=== PATIENT | female | born 1970 | race Caucasian/White ===

== ENCOUNTER 2017-07-16 14:32 | Emergency (ER) | payer MEDICAID ==
[2014-03-09 14:53] VITALS: BMI 50.0
[~2017-07-16 14:32] MED LIST: ASPI81TA94 PO; ATOR40TA24 PO; DIA5 PO; DIAZ-308 PO; DOCU-202 PO; ESCI20TA8 PO; HYDR-2966 PO; HYDR-4308 PO; HYDR-4309 PO; LISD30PT PO; LISI-362 PO; METO50TA19 PO; MULT-947 PO; MUPI15CR2 TP; NITR0.4T3 SL; OMEG-11 PO; OMEP-125 PO; OMEP40CA48 PO; PANT40TA65 PO; PER PO; PROM-110 PO; SERT-181 PO; SIMV-49 PO; TRAM-420 PO; TRI05T TP
--- NOTE | 2017-07-16 14:41 | ER Report ---
History and Physical Time Seen By MD: 14:40 Hx. of Stated Complaint: PATIENT FELL ON HER LEFT WRIST YESTERDAY. SHE IS REPORTING TINGLING IN HER FINGERS ON HER LEFT HAND HPI/ROS CHIEF COMPLAINT: Left wrist pain HISTORY OF PRESENT ILLNESS: This is a 47-year-old female who presents to the emergency department for left wrist pain. Patient states that she was at work yesterday slipped off the stool landed on her left forearm and wrist to break her fall and while doing this she twisted her right knee as well. Patient states that she has had some increased pain throughout today in addition to bruising and some numbness and tingling to the left thumb and distal fingers. Patient also states that she has carpal tunnel but this feels different. Patient denies nausea, vomiting, diarrhea, aches or chills. REVIEW OF SYSTEMS: Respiratory: No cough, no dyspnea. Cardiovascular: No chest pain, no palpitations. Gastrointestinal: No vomiting, no abdominal pain. Musculoskeletal: As above. Allergies: Coded Allergies: No Known Drug Allergies (Unverified , 09/13/15) Home Meds Active Scripts Omeprazole (OMEPRAZOLE) 40 Mg Capsule.dr, 40 MG PO QDAY, #30 CAP 6 Refills Prov:AURELIA LAYNE MD 06/10/17 Lisdexamfetamine Dimesylate (VYVANSE) 30 Mg Capsule, 30 MG PO QDAY, #30 CAPSULE Prov:AURELIA LAYNE MD 06/10/17 Escitalopram Oxalate (ESCITALOPRAM OXALATE) 20 Mg Tablet, 20 MG PO QDAY, #30 TAB 5 Refills Prov:AURELIA LAYNE MD 06/10/17 Hydrochlorothiazide (HYDROCHLOROTHIAZIDE) 25 Mg Tablet, 0.5 TAB PO QDAY, #30 TAB 6 Refills Prov:AURELIA LAYNE MD 06/10/17 Metoprolol Succinate (METOPROLOL SUCCINATE) 50 Mg Tab.er.24h, 1 TAB PO QDAY, # 30 TAB 6 Refills Prov:AURELIA LAYNE MD 06/10/17 Triamcinolone Acet 0.5% (TRIAMCINOLONE ACETONIDE 0.5%) 15 Gm Cr, 15 GM TP BID, # 15 G 1 Refill Prov:AURELIA LAYNE MD 06/10/17 Aspirin (ASPIRIN) 81 Mg Tab.chew, 81 MG PO QDAY, #90 TAB.CHEW 3 Refills Prov:AURELIA LAYNE MD 07/29/16 Reported Medications Multivit With Calcium,Iron,Min (WOMEN'S DAILY FORMULA) 1 Each Tablet, 1 EACH PO QDAY 02/20/14 Past Medical/Surgical History Patient has a past medical and surgical history of pulmonary hypertension, ankle problems, wears glasses, morbidly obese, appendectomy, mole removal. Reviewed Nurses Notes: Yes Hx Smoking: No Smoking Status: Never Smoker Exposure to Second Hand Smoke?: No Hx Substance Use Disorder: No Hx Alcohol Use: No Constitutional Vital Sign - Last 24 Hours 07/16/17 07/16/17 14:36 16:27 Temp 98.8 Pulse 92 85 Resp 20 18 B/P (MAP) 136/98 114/80 (91) Pulse Ox 93 92 O2 Delivery Room Air Room Air Physical Exam General Appearance: The patient is alert, has no immediate need for airway protection and no current signs of toxicity. Eyes: Pupils equal and round no injection. Respiratory: Chest is non tender, lungs are clear to auscultation. Cardiac: regular rate and rhythm. Gastrointestinal: Abdomen is soft and non tender, no masses, bowel sounds normal. Musculoskeletal: Neck: Neck is supple and non tender. Extremities bruising to the palm of the left hand, bruising to the palmar side of the left wrist.Examination of the Left hand reveals no acute deformity. The patient is able to give a thumbs up sign, is able to make an okay sign, and is able to AB duct the fingers. Sensation is intact over the dorsal 1st web space, the volar aspect of the 2nd finger, and the volar aspect of the 5th finger. Capillary refill is brisk. Left snuff box tenderness. Navicular and lunate pain. Skin: No rashes or lesions. DIFFERENTIAL DIAGNOSIS: After history and physical exam differential diagnosis was considered for navicular fracture, lunate fracture, distal radial fracture, contusion. Medical Decision Making EKG/Imaging Imaging PATIENT NAME: Mahsa Pearson : 1970 MR: [id number] V: [id number] EXAM DATE: ORDERING PHYSICIAN: YOHANA CATES TECHNOLOGIST: [place] [facility] [place] Patient: Mahsa Pearson : 1970 Visit/Account:[id number] Date of Sevice: 07/16/2017 EXAMINATION: Right knee radiographs 4 views HISTORY: Fall. Knee pain. COMPARISON: None. FINDINGS: AP, sunrise, lateral and oblique views of the right knee are obtained. Bones: No acute fracture. Joint spaces: Mild joint space narrowing and marginal osteophytes of the medial and lateral compartments and patellofemoral compartment. Hardware: None. Alignment: Normal. Soft tissues: Negative. IMPRESSION: No acute right knee fracture. 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 Report Dictated By: Jese Fuller MD at 07/16/2017 3:26 PM Report E-Signed By: Jese Fuller MD at 07/16/2017 3:29 PM WSN:[id number] PATIENT NAME: Mahsa Pearson : 1970 MR: [id number] V: [id number] EXAM DATE: ORDERING PHYSICIAN: YOHANA CATES TECHNOLOGIST: [place] [facility] [place] Patient: Mahsa Pearson : 1970 Visit/Account:[id number] Date of Sevice: 07/16/2017 EXAMINATION: Left wrist radiographs 3 views HISTORY: Fall. Wrist pain. COMPARISON: None. FINDINGS: PA, lateral and oblique views of the left wrist are obtained. Bones: Negative. Joint spaces: Negative. Hardware: None. Alignment: Normal. Soft tissues: Negative. IMPRESSION: No evidence of acute left wrist fracture. Report Dictated By: Jese Fuller MD at 07/16/2017 3:25 PM Report E-Signed By: Jese Fuller MD at 07/16/2017 3:26 PM WSN:[id number] ED Course/Re-evaluation ED Course The patient was admitted to room. A history of physical or pain. Differential diagnoses were considered. A left wrist and right knee x-ray were obtained, also which were negative for any acute abnormalities. I did review these results with the patient. Patient was placed in a wrist splint for comfort. Patient was also encouraged to follow-up with her primary care provider as needed and also follow-up with [facility] if she has continued left wrist pain and knee pain after 7 days. She was encouraged to return to emergency department for worsening symptoms. Patient was also given a gram of Tylenol in the emergency department. Patient was encouraged to take ibuprofen or Tylenol as needed for pain and discomfort. Patient had no other questions or concerns and was discharged home. Decision to Disposition Date: Jul 16, 2017 Decision to Disposition Time: 16:08 Depart Departure Latest Vital Signs Vital Signs Date Time Temp Pulse Resp B/P (MAP) Pulse Ox O2 Delivery O2 Flow Rate FiO2 07/16/17 16:27 85 18 114/80 (91) 92 Room Air 07/16/17 14:36 98.8 Impression: Primary Impression: Contusion of left wrist Condition: Improved Disposition: HOME OR SELF-CARE Referrals: AURELIA LAYNE MD (PCP) Patient Instructions: Contusion in Adults (ED) Additional Instructions: Drink plenty of fluids. Get plenty of rest. Wear the splint for comfort. If no improvement in the pain, swelling and tingling in 7-14 days please follow- up with [facility]. Follow-up with your primary care provider for any other nature may have. You can take 600-800 mg ibuprofen every 6-8 hours as needed for pain. You can take 1000 mg Tylenol as needed for pain up to 3 times a day. If you have worsening symptoms or any other concerns he may return to the emergency department. Problem Qualifiers Primary Impression: Contusion of left wrist Encounter type: initial encounter Qualified Codes: S60.212A - Contusion of left wrist, initial encounter YOHANA CATES ENVIRONMENTAL HEALTH NURSE-BC Jul 16, 2017 14:41
[2017-07-16] MEDS ORDERED: ACETAMINOPHEN 500 MG TAB PO ONE (14:55)
--- NOTE | 2017-07-16 15:31 | RADIOLOGY IMAGING REPORT ---
FACILITY: [facility] PATIENT NAME: Mahsa Pearson : 1970 MR: [id number] V: [id number] EXAM DATE: ORDERING PHYSICIAN: YOHANA CATES TECHNOLOGIST: [place] [facility] [place]sa [place] : 1970 Visit/Account:[id number] Date of Sevice: 07/16/2017 EXAMINATION: Left wrist radiographs 3 views HISTORY: Fall. Wrist pain. COMPARISON: None. FINDINGS: PA, lateral and oblique views of the left wrist are obtained. Bones: Negative. Joint spaces: Negative. Hardware: None. Alignment: Normal. Soft tissues: Negative. IMPRESSION: No evidence of acute left wrist fracture. Report Dictated By: Jese Fuller MD at 07/16/2017 3:25 PM Report E-Signed By: Jese Fuller MD at 07/16/2017 3:26 PM WSN:[id number]
--- NOTE | 2017-07-16 15:34 | RADIOLOGY IMAGING REPORT ---
[place] [facility] [place] NAME: Mahsa Pearson : 1970 MR: [id number] V: [id number] EXAM DATE: ORDERING PHYSICIAN: YOHANA CATES TECHNOLOGIST: Location: [facility] [place] Patient: Mahsa Pearson : 1970 Visit/Account:[id number] Date of Sevice: 07/16/2017 EXAMINATION: Right knee radiographs 4 views HISTORY: Fall. Knee pain. COMPARISON: None. FINDINGS: AP, sunrise, lateral and oblique views of the right knee are obtained. Bones: No acute fracture. Joint spaces: Mild joint space narrowing and marginal osteophytes of the medial and lateral compartm ents and patellofemoral compartment. Hardware: None. Alignment: Normal. Soft tissues: Negative. IMPRESSION: No acute right knee fracture. 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 Report Dictated By: Jese Fuller MD at 07/16/2017 3:26 PM Report E-Signed By: Jese Fuller MD at 07/16/2017 3:29 PM WSN:[id number]
[2017-07-16 16:27] VITALS: BP 114/80
== END 2017-07-16 16:22 | disposition home or self-care (01) ==
LOC: ER 14:33
DX: S60.212A Contusion of left wrist, initial encounter (principal)
CPT/HCPCS: 73110; 73564; 99282; L3908

== ENCOUNTER → 2017-08-04 | Outpatient (CLI) | payer MEDICAID ==
[2014-03-09 14:53] VITALS: BMI 50.0
[~2017-08-04] MED LIST changes: +ALBU2.5V36 INH; +GUAI120L3 PO
--- NOTE | 2017-08-04 12:36 | RADIOLOGY IMAGING REPORT ---
FACILITY: [facility] - [place] PATIENT NAME: Mahsa Pearson : 1970 MR: [id number] V: [id number] EXAM DATE: ORDERING PHYSICIAN: EDGARD NGUYEN TECHNOLOGIST: Location: [facility] Patient: Mahsa Pearson : 1970 Visit/Account:[id number] Date of Sevice: 08/04/2017 Exam type: CHEST PA AND LAT History: Influenza be, cough fever shortness of breath for four days Comparison: September 13, 2015. Findings: The lungs are free of acute effusions, infiltrates or edema. The cardiac silhouette is normal in siz e. The trachea is midline.. There are mild spondylotic changes of the thoracic spine IMPRESSION: 1. No acute cardiopulmonary process is seen Report Dictated By: Susan Allred MD at 08/04/2017 12:30 PM Report E-Signed By: Susan Allred MD at 08/04/2017 12:32 PM WSN:[id number]
== END ==
LOC: RAD 10:44
PROVIDERS: ATTEND Nurse Practitioner Primary Care
DX: R05 Cough (principal)
CPT/HCPCS: 71046

== ENCOUNTER 2017-11-25 19:27 | Emergency (ER) | payer MEDICAID ==
[2014-03-09 14:53] VITALS: Wt 149.7 kg
[~2017-11-25 19:27] MED LIST changes: +AZIT-1 PO; +FLU150 PO; +PRED20TA6 PO
--- NOTE | 2017-11-25 19:41 | ER Report ---
History and Physical Time Seen By MD: 19:40 Hx. of Stated Complaint: PATIENT STATES THAT TODAY SHE HAS HAD HIGH BLOOD PRESSURE ALL DAY; PATIENT STATES THAT SHE HAS HAD CHEST PAIN FOR ABOUT A AN HOUR; PATIENT STATES THAT SHE IS ALSO HAS HEAD ACHES; "RED FACE"; AND HAS BEEN SWEATING HPI/ROS CHIEF COMPLAINT: chest pain, elevated blood pressure HISTORY OF PRESENT ILLNESS: This is a 47 year old female. She has been having some pains in her chest, just to the left of sternum and on the side of the chest by the left breast. Sharp pains, comes and goes. Having a headache and some tightness in neck. Blood pressure running high today. Takes Metoprolol succinate 50mg in the evenings. Is supposed to take HCTZ 12.5mg, but dies not have money to get this medicine. Also supposed to take Omeprazole. Having occasional nausea. No shortness of breath. No fevers or chills. Allergies: Coded Allergies: No Known Drug Allergies (Unverified , 09/13/15) Home Meds Active Scripts Omeprazole (OMEPRAZOLE) 40 Mg Capsule.dr, 40 MG PO QDAY, #30 CAP 0 Refills Prov:EDGARD NGUYEN DNP, FNP-BC 09/06/17 Escitalopram Oxalate (ESCITALOPRAM OXALATE) 20 Mg Tablet, 20 MG PO QDAY, #30 TAB 0 Refills Prov:EDGARD NGUYEN DNP, FNP-BC 09/06/17 Metoprolol Succinate (METOPROLOL SUCCINATE) 50 Mg Tab.er.24h, 1 TAB PO QDAY, # 30 TAB 0 Refills Prov:EDGARD NGUYEN DNP, FNP-BC 09/06/17 Lisdexamfetamine Dimesylate (VYVANSE) 30 Mg Capsule, 30 MG PO QDAY, #30 CAPSULE Prov:AURELIA LAYNE MD 06/10/17 Hydrochlorothiazide (HYDROCHLOROTHIAZIDE) 25 Mg Tablet, 0.5 TAB PO QDAY, #30 TAB 6 Refills Prov:AURELIA LAYNE MD 06/10/17 Triamcinolone Acet 0.5% (TRIAMCINOLONE ACETONIDE 0.5%) 15 Gm Cr, 15 GM TP BID, # 15 G 1 Refill Prov:AURELIA LAYNE MD 12/14/17 Aspirin (ASPIRIN) 81 Mg Tab.chew, 81 MG PO QDAY, #90 TAB.CHEW 3 Refills Prov:AURELIA LAYNE MD 07/29/16 Reported Medications Multivit With Calcium,Iron,Min (WOMEN'S DAILY FORMULA) 1 Each Tablet, 1 EACH PO QDAY 02/20/14 Discontinued Scripts Guaifenesin/Codeine Phosphate (Codeine-Guaifen 10-100 mg/5 ml) 120 Ml Liquid, 1- 2 TSP PO Q6H Y for COUGH, #120 ML 0 Refills Prov:EDGARD NGUYEN DNP [facility] 09/06/17 Fluconazole (FLUCONAZOLE) 150 Mg Tab, 1 TAB PO ONCE, #2 TAB 0 Refills Take 1 tab x1. May take 2nd dose 72h later, if needed. Prov:EDGARD NGUYEN DNP, FNPJeimy 09/06/17 Azithromycin (ZITHROMAX) 250 Mg Tablet, 0 PO QDAY, #6 TAB 0 Refills TAKE 2 TABLETS ON DAY 1 AND 1 TABLET ON DAYS 2-5 Prov:EDGARD NGUYEN DNP, FNP-BC 09/06/17 Prednisone (PREDNISONE) 20 Mg Tablet, 1 TAB PO BID for 5 Days, #10 TAB 0 Refills Prov[facility] 09/06/17 Reviewed Nurses Notes: Yes Hx Smoking: No Smoking Status: Never Smoker Exposure to Second Hand Smoke?: No Hx Substance Use Disorder: No Hx Alcohol Use: No Constitutional Vital Sign - Last 24 Hours 11/25/17 11/25/17 11/25/17 11/25/17 19:31 19:35 19:47 19:57 Temp 98.9 Pulse 103 106 Resp 19 18 B/P (MAP) 148/91 148/91 (110) 144/69 (94) Pulse Ox 93 94 O2 Delivery Room Air 11/25/17 11/25/17 11/25/17 11/25/17 20:00 20:15 20:27 20:30 Pulse 103 Resp 29 B/P (MAP) 134/81 (98) 121/79 (93) 115/65 (82) Pulse Ox 90 11/25/17 11/25/17 11/25/17 11/25/17 20:45 20:57 21:11 21:15 Pulse 102 Resp 29 B/P (MAP) 132/76 (94) 149/83 (105) 133/76 (95) Pulse Ox 91 11/25/17 11/25/17 11/25/17 11/25/17 21:30 21:45 21:57 22:00 Pulse 98 B/P (MAP) 136/73 (94) 131/86 (101) 110/72 (85) 11/25/17 11/25/17 11/25/17 11/25/17 22:15 22:27 22:30 22:45 Pulse 99 Resp 46 B/P (MAP) 128/77 (94) 130/73 (92) 126/78 (94) Pulse Ox 91 11/25/17 11/25/17 11/25/17 11/25/17 22:50 23:00 23:05 23:15 Pulse 96 97 Resp 32 43 B/P (MAP) 130/109 (116) 137/75 (95) Pulse Ox 91 91 11/25/17 11/25/17 11/25/17 11/25/17 23:20 23:30 23:35 23:39 Pulse 97 99 Resp 27 12 B/P (MAP) 137/81 (99) 133/92 (106) Pulse Ox 90 90 Physical Exam General Appearance: The patient is alert. No acute distress. Eyes: Pupils are equal, round. No pallor, injection or icterus. ENT: Mucous membranes are moist. Normal oral mucosa. Posterior oropharynx is normal. Neck: Supple and non tender. Respiratory: Lungs are clear to auscultation. Cardiovascular: Regular rate and rhythm. No murmurs, gallops or rubs. Normal capillary refill. Gastrointestinal: Abdomen is soft and non tender. Nondistended. Normal active bowel sounds. Neurological: Alert and oriented x3. No focal neurologic deficits Skin: Warm and dry. DIFFERENTIAL DIAGNOSIS: After history and physical exam, differential diagnosis was considered for elevated blood pressure and chest pain including but not limited to myocardial ischemia, pericarditis pulmonary embolus, chest wall pain , pleural inflammation and pulmonary infectious causes. Medical Decision Making Data Points Result Diagram: 11/25/17195711/25/171957 Laboratory Hematology Test 11/25/17 19:49 11/25/17 19:58 Urine Color Yellow Urine Clarity Slightly-cloudy Urine pH 6.0 pH (4.8-9.5) Urine Specific [place] 1.025 Urine Protein Negative mg/dL (NEGATIVE) Urine Glucose (UA) Negative mg/dL (NEGATIVE) Urine Ketones Trace mg/dL (NEGATIVE) Urine Blood Negative (NEGATIVE) Urine Nitrite Negative (NEGATIVE) Urine Bilirubin Negative (NEGATIVE) Urine Urobilinogen Negative mg/dL (0.2-1.9) Urine Leukocyte Esterase Negative (NEGATIVE) Urine RBC <1 /HPF (0-2/HPF) Urine WBC 1 /HPF (0-5/HPF) Urine Squamous Epithelial Cells Many /LPF (</=FEW) Urine Bacteria Few /HPF (NONE-FEW) Urine Mucus Few /HPF (NONE-FEW) Red Blood Count 4.49 M/uL (4.17-5.56) Mean Corpuscular Volume 90.0 fL (80.0-96.0) Mean Corpuscular Hemoglobin 30.9 pg (26.0-33.0) Mean Corpuscular Hemoglobin Concent 34.3 g/dL (32.0-36.0) Red Cell Distribution Width 13.8 % (11.5-14.5) Mean Platelet Volume 9.9 fL (7.2-11.1) Neutrophils (%) (Auto) 60.0 % (39.4-72.5) Lymphocytes (%) (Auto) 32.4 % (17.6-49.6) Monocytes (%) (Auto) 6.1 % (4.1-12.4) Eosinophils (%) (Auto) 1.0 % (0.4-6.7) Basophils (%) (Auto) 0.5 % (0.3-1.4) Nucleated RBC Relative Count (auto) 0.0 /100WBC Neutrophils # (Auto) 5.1 K/uL (2.0-7.4) Lymphocytes # (Auto) 2.8 K/uL (1.3-3.6) Monocytes # (Auto) 0.5 K/uL (0.3-1.0) Eosinophils # (Auto) 0.1 K/uL (0.0-0.5) Basophils # (Auto) 0.0 K/uL (0.0-0.1) Nucleated RBC Absolute Count (auto) 0.00 K/uL Prothrombin Time 13.0 seconds (12.0-14.4) Prothromb Time International Ratio 0.98 Activated Partial Thromboplast Time 23 seconds (23-35) D-Dimer Quantitative (PE/DVT) 0.32 ug/ml (0-0.50) Sodium Level 139 mmol/L (137-145) Potassium Level 3.6 mmol/L (3.5-5.0) Chloride Level 98 mmol/L (98-107) Carbon Dioxide Level 26 mmol/L (22-31) Blood Urea Nitrogen 8 mg/dl (7-18) Creatinine 0.60 mg/dl (0.52-1.04) Glomerular Filtration Rate Calc > 60.0 Random Glucose 191 mg/dl (75-110) Calcium Level 9.6 mg/dl (8.4-10.2) Total Bilirubin 1.0 mg/dl (0.2-1.3) Aspartate Amino Transf (AST/SGOT) 34 U/L (0-35) Alanine Aminotransferase (ALT/SGPT) 28 U/L (0-56) Alkaline Phosphatase 115 U/L (0-126) Troponin I < 0.012 ng/ml Total Protein 7.4 gm/dl (6.3-8.2) Albumin 3.9 g/dl (3.5-5.0) Chemistry Test 11/25/17 19:49 11/25/17 19:58 Urine Color Yellow Urine Clarity Slightly-cloudy Urine pH 6.0 pH (4.8-9.5) Urine Specific [place] 1.025 Urine Protein Negative mg/dL (NEGATIVE) Urine Glucose (UA) Negative mg/dL (NEGATIVE) Urine Ketones Trace mg/dL (NEGATIVE) Urine Blood Negative (NEGATIVE) Urine Nitrite Negative (NEGATIVE) Urine Bilirubin Negative (NEGATIVE) Urine Urobilinogen Negative mg/dL (0.2-1.9) Urine Leukocyte Esterase Negative (NEGATIVE) Urine RBC <1 /HPF (0-2/HPF) Urine WBC 1 /HPF (0-5/HPF) Urine Squamous Epithelial Cells Many /LPF (</=FEW) Urine Bacteria Few /HPF (NONE-FEW) Urine Mucus Few /HPF (NONE-FEW) White Blood Count 8.5 k/uL (4.5-11.0) Red Blood Count 4.49 M/uL (4.17-5.56) Hemoglobin 13.9 g/dL (12.0-16.0) Hematocrit 40.4 % (34.0-47.0) Mean Corpuscular Volume 90.0 fL (80.0-96.0) Mean Corpuscular Hemoglobin 30.9 pg (26.0-33.0) Mean Corpuscular Hemoglobin Concent 34.3 g/dL (32.0-36.0) Red Cell Distribution Width 13.8 % (11.5-14.5) Platelet Count 275 K/uL (150-450) Mean Platelet Volume 9.9 fL (7.2-11.1) Neutrophils (%) (Auto) 60.0 % (39.4-72.5) Lymphocytes (%) (Auto) 32.4 % (17.6-49.6) Monocytes (%) (Auto) 6.1 % (4.1-12.4) Eosinophils (%) (Auto) 1.0 % (0.4-6.7) Basophils (%) (Auto) 0.5 % (0.3-1.4) Nucleated RBC Relative Count (auto) 0.0 /100WBC Neutrophils # (Auto) 5.1 K/uL (2.0-7.4) Lymphocytes # (Auto) 2.8 K/uL (1.3-3.6) Monocytes # (Auto) 0.5 K/uL (0.3-1.0) Eosinophils # (Auto) 0.1 K/uL (0.0-0.5) Basophils # (Auto) 0.0 K/uL (0.0-0.1) Nucleated RBC Absolute Count (auto) 0.00 K/uL Prothrombin Time 13.0 seconds (12.0-14.4) Prothromb Time International Ratio 0.98 Activated Partial Thromboplast Time 23 seconds (23-35) D-Dimer Quantitative (PE/DVT) 0.32 ug/ml (0-0.50) Glomerular Filtration Rate Calc > 60.0 Calcium Level 9.6 mg/dl (8.4-10.2) Total Bilirubin 1.0 mg/dl (0.2-1.3) Aspartate Amino Transf (AST/SGOT) 34 U/L (0-35) Alanine Aminotransferase (ALT/SGPT) 28 U/L (0-56) Alkaline Phosphatase 115 U/L (0-126) Troponin I < 0.012 ng/ml Total Protein 7.4 gm/dl (6.3-8.2) Albumin 3.9 g/dl (3.5-5.0) Coagulation Test 11/25/17 19:58 Prothrombin Time 13.0 seconds Prothromb Time International Ratio 0.98 Activated Partial Thromboplast Time 23 seconds D-Dimer Quantitative (PE/DVT) 0.32 ug/ml Urinalysis Test 11/25/17 19:49 Urine Color Yellow Urine Clarity Slightly-cloudy Urine pH 6.0 pH (4.8-9.5) Urine Specific [place] 1.025 Urine Protein Negative mg/dL (NEGATIVE) Urine Glucose (UA) Negative mg/dL (NEGATIVE) Urine Ketones Trace mg/dL (NEGATIVE) Urine Blood Negative (NEGATIVE) Urine Nitrite Negative (NEGATIVE) Urine Bilirubin Negative (NEGATIVE) Urine Urobilinogen Negative mg/dL (0.2-1.9) Urine Leukocyte Esterase Negative (NEGATIVE) Urine RBC <1 /HPF (0-2/HPF) Urine WBC 1 /HPF (0-5/HPF) Urine Squamous Epithelial Cells Many /LPF (</=FEW) Urine Bacteria Few /HPF (NONE-FEW) Urine Mucus Few /HPF (NONE-FEW) EKG/Imaging EKG Interpretation 12 lead EKG: Rhythm: Sinus tachycardia, rate 103 [place]: normal QRS: normal ST segments: normal Imaging Examination: CHEST PA AND LAT Comparison: 08/04/2017 History: Chest pain. Findings: No consolidation, nodule, or peribronchial inflammation. No pneumothorax, edema, or effusion. Cardiac and hilar contour size is normal. Osseous structures are intact. IMPRESSION: No evidence of acute cardiopulmonary disease. Report Dictated By: Edd Whitaker MD at 11/25/2017 9:27 PM ED Course/Re-evaluation Clinical Indication for ER IV: IV Access ED Course Gave the patient hydrochlorothiazide 12.5 mg had her metoprolol dose. Blood pressure came down well. Laboratory studies, EKG, and x-rays are negative. Reviewed with the patient that this is noncardiac pain. Could be pleurisy, could be related to reflux. Recommended restarting omeprazole and her hydrochlorothiazide. Decision to Disposition Date: November 25, 2017 Decision to Disposition Time: 22:52 Depart Departure Latest Vital Signs Vital Signs Date Time Temp Pulse Resp B/P (MAP) Pulse Ox O2 Delivery O2 Flow Rate FiO2 11/25/17 23:39 133/92 (106) 11/25/17 23:35 99 12 90 11/25/17 19:31 98.9 Room Air Impression: Primary Impression: Hypertension Additional Impressions: Chest pain GERD (gastroesophageal reflux disease) Condition: Improved Disposition: HOME OR SELF-CARE Referrals: AURELIA LAYNE MD (PCP) Patient Instructions: Chest Pain (ED), Hypertension (ED) Additional Instructions: We think that your chest pain is due to inflammation or possibly due to your reflux We did not find any dangerous problems on exam today. Please rest and increase fluids. Restart your Omeprazole. Restart your hydrochlorathiazide. No change to Metoprolol. Problem Qualifiers Primary Impression: Hypertension Hypertension type: unspecified Qualified Codes: I10 - Essential (primary) hypertension Additional Impressions: Chest pain Chest pain type: unspecified Qualified Codes: R07.9 - Chest pain, unspecified GERD (gastroesophageal reflux disease) Esophagitis presence: with esophagitis Qualified Codes: K21.0 - Gastro- esophageal reflux disease with esophagitis JACQUE GONZALEZ MD November 25, 2017 19:41
[2017-11-25] MEDS ORDERED: HYDROCHLOROTHIAZIDE 25 MG TAB PO ONE (20:05)
[2017-11-25] MEDS ORDERED: NS(*) 0.9% 1000 ML BAG 1,000 ML IV ONE (20:05)
[2017-11-25] MEDS ORDERED: METOPROLOL SUCC XL 50 MG TABCR 50 MG TAB.ER.24H PO ONE (20:05)
[2017-11-25] MEDS ORDERED: ASPIRIN 81 MG CHEW PO ONE (20:05)
[2017-11-25 20:17] LABS: PLATELET COUNT, AUTOMATED 275 K/uL (150-450)
--- NOTE | 2017-11-25 20:25 | EKG ---
FACILITY: [facility] - [place] PATIENT NAME: TWAN NGUYEN : [id number] MR: [id number] V: [id number] EXAM DATE: ORDERING PHYSICIAN: JACQUE GONZALEZ TECHNOLOGIST: TYLER Test Reason : CP Blood Pressure : / mmHG Vent. Rate : 103 BPM Atrial Rate : 103 BPM P-R Int : 130 ms QRS Dur : 090 ms QT Int : 342 ms P-R-T Axes : 049 017 011 degrees QTc Int : 448 ms Sinus tachycardia Possible Left atrial enlargement No ST-T abnormalities Unchanged from previous Confirmed by SANDRO CENTENO ([id number]) on 11/25/2017 10:49:38 PM Referred By: CARLOS Confirmed By:SANDRO CENTENO
[2017-11-25 20:27] LABS: INR 0.98
--- NOTE | 2017-11-25 21:35 | RADIOLOGY IMAGING REPORT ---
FACILITY: [facility] - [place] PATIENT NAME: Mahsa Pearson : 1970 MR: [id number] V: [id number] EXAM DATE: ORDERING PHYSICIAN: JACQUE GONZALEZ TECHNOLOGIST: Location: [facility] [place] Patient: Mahsa Pearson : 1970 Visit/Account:[id number] Date of Sevice: 11/25/2017 Examination: CHEST PA AND LAT Comparison: 08/04/2017 History: Chest pain. Findings: No consolidation, nodule, or peribronchial inflammation. No pneumothorax, edema, or effusio n. Cardiac and hilar contour size is normal. Osseous structures are intact. IMPRESSION: No evidence of acute cardiopulmonary disease. Report Dictated By: Edd Whitaker MD at 11/25/2017 9:27 PM Report E-Signed By: Edd Whitaker MD at 11/25/2017 9:30 PM WSN:[id number]
[2017-11-25 23:39] VITALS: BP 133/92
== END 2017-11-25 23:56 | disposition home or self-care (01) ==
LOC: ER 19:38
DX: I10 Essential (primary) hypertension (principal); R07.89 Other chest pain; K21.0 Gastro-esophageal reflux disease with esophagitis
CPT/HCPCS: 71046; 81001; 84484; 85025; 85379; 85610; 85730; 93005; 96360; 99284; J7030; 82040; 82247; 82310; 82374; 82435; 82565; 82947; 84075; 84132; 84155; 84295; 84450; 84460; 84520

== ENCOUNTER → 2018-04-08 | Outpatient (CLI) | payer MEDICAID ==
[2014-03-09 14:53] VITALS: BMI 50.0
[~2018-04-08] MED LIST changes: +FLUT16SP19 NS
[2018-04-08 12:36] LABS: PLATELET COUNT, AUTOMATED 327 K/uL (150-450)
== END ==
LOC: LAB 11:45
PROVIDERS: ATTEND Internal Medicine
DX: E11.9 Type 2 diabetes mellitus without complications (principal); I10 Essential (primary) hypertension; F32.9 Major depressive disorder, single episode, unspecified; E78.5 Hyperlipidemia, unspecified; A08.4 Viral intestinal infection, unspecified
CPT/HCPCS: 36415; 81001; 82040; 82247; 82310; 82374; 82435; 82465; 82565; 82947; 83036; 83718; 84075; 84132; 84155; 84295; 84443; 84450; 84460; 84478; 84520; 85025

== ENCOUNTER → 2018-08-09 | Outpatient (CLI) | payer MEDICAID ==
[2014-03-09 14:53] VITALS: BMI 50.0
[~2018-08-09] MED LIST changes: +ATOR20TA65 PO; +BLOO-1037 MC; +BLOO-960 MC; +FLAS1EAC2 TD; +FLAS1KIT2; +GLIM4TAB50 PO; -HYDR-4308 PO; -HYDR-4309 PO; +HYDR-653 PO; +HYDR-654 PO; +LANC-165 ASDIRECTED; +METF500T4 PO; +METO100T20 PO; +MUPI15CR10 TP; +ROSU10TA PO; +SIMV-54 PO; +SITA100T PO
--- NOTE | 2018-08-09 15:47 | RADIOLOGY IMAGING REPORT ---
FACILITY: [facility] PATIENT NAME: Mahsa Pearson : 1970 MR: [id number] V: [id number] EXAM DATE: ORDERING PHYSICIAN: AURELIA LAYNE TECHNOLOGIST: Location: [facility] [place] Patient: Mahsa Pearson : 1970 Visit/Account:[id number] Date of Sevice: 08/09/2018 KNEE 3 VIEW RIGHT Indication: Pain Comparison: None. Findings: There is mild narrowing of the medial and lateral compartment with osteophyte formation. T here is no effusion or fracture. Morbid obesity is seen. IMPRESSION: 1. Mild degenerative changes right knee. 2. Morbid obesity. Report Dictated By: All Torres at 08/09/2018 3:42 PM Report E-Signed By: All Torres at 08/09/2018 3:43 PM WSN:[id number]
== END ==
LOC: RAD 15:17
PROVIDERS: ATTEND Internal Medicine
DX: M17.11 Unilateral primary osteoarthritis, right knee (principal); E66.9 Obesity, unspecified

== ENCOUNTER 2018-11-30 19:51 | Emergency (ER) | payer MEDICAID ==
[2014-03-09 14:53] VITALS: Wt 154.2 kg
[~2018-11-30 19:51] MED LIST changes: -OMEP-125 PO; +OMEP-126 PO
--- NOTE | 2018-11-30 19:53 | ER Report ---
History and Physical Time Seen By MD: 19:52 HPI/ROS CHIEF COMPLAINT: Cough, fever, chest pressure HISTORY OF PRESENT ILLNESS: Patient is a 48-year-old female here with complaints of cough, fever since yesterday, chest pressure, dry cough not productive of sputum. Patient does have a history of pulmonary hypertension, suspected reactive airway disease. Patient has a temperature of 102 Fahrenheit, tachycardic with a rate of 119, SPO2 of 87% on her baseline 2 L nasal cannula. Patient is normotensive at time of evaluation, blood cultures, lactate, IV fluids, antipyretic initiated at time of arrival. Patient does have mild nausea that has been tolerating oral intake until recently. REVIEW OF SYSTEMS: Constitutional: + fever, + chills. Eyes: No discharge. ENT: No sore throat. Cardiovascular: + chest pain, no palpitations. Respiratory: + non productive cough, + shortness of breath. Gastrointestinal: No abdominal pain, + nausea and vomiting. Genitourinary: No hematuria. Musculoskeletal: No back pain. Skin: No rashes. Neurological: No headache. Allergies: Coded Allergies: No Known Drug Allergies (Unverified , 11/30/18) Home Meds Active Scripts Prednisone (PREDNISONE) 50 Mg Tablet, 50 MG PO QDAY for 4 Days, #4 TAB Prov:PHYLLIS DILLARD DO 11/30/18 Ondansetron 4 Mg Odt (ONDANSETRON 4 MG ODT) 4 Mg Tab.rapdis, 4 MG PO Q4-6H PRN for NAUSEA/VOMITING, #20 TAB Prov:PHYLLIS DILLARD DO 11/30/18 Levofloxacin 750 Mg Tab (LEVAQUIN 750 MG TAB) 750 Mg Tablet, 750 MG PO QDAY for 4 Days, #4 TAB Prov:PHYLLIS DILLARD DO 11/30/18 Mupirocin Calcium (BACTROBAN) 15 Gm Cream..g., 0 TP BID, #15 GM Prov:AURELIA LAYNE MD 08/09/18 Omeprazole (OMEPRAZOLE) 40 Mg Capsule.dr, 40 MG PO QDAY, #90 CAP 3 Refills Prov:AURELIA LAYNE MD 06/16/18 Aspirin (ASPIRIN) 81 Mg Tab.chew, 81 MG PO QDAY, #90 TAB.CHEW 3 Refills Prov:AURELIA LAYNE MD 06/01/18 Escitalopram Oxalate (ESCITALOPRAM OXALATE) 20 Mg Tablet, 20 MG PO QDAY, #90 TAB 3 Refills Prov:AURELIA LAYNE MD 06/01/18 Atorvastatin Calcium (ATORVASTATIN CALCIUM) 20 Mg Tablet, 1 TAB PO QDAY, #30 TAB 6 Refills Prov:AURELIA LAYNE MD 05/26/18 Metoprolol Succinate (METOPROLOL SUCCINATE) 100 Mg Tab.er.24h, 1 TAB PO QDAY, #90 TAB 3 Refills Prov:AURELIA LAYNE MD 04/14/18 Fluticasone Prop 50 Mcg Ns (FLONASE 50 MCG NS) 16 Gm Chuckey.susp, 2 SPRAYS NS QDAY, #1 BOT 1 Refill Prov:AURELIA LAYNE MD 04/07/18 Promethazine Hcl (PROMETHAZINE HCL) 25 Mg Tablet, 25 MG PO Q8H, #20 TAB Prov:AURELIA LAYNE MD 04/07/18 Hydrochlorothiazide (HYDROCHLOROTHIAZIDE) 25 Mg Tablet, 0.5 TAB PO QDAY, #30 TAB 6 Refills Prov:AURELIA LAYNE MD 06/10/17 Reported Medications Multivit With Calcium,Iron,Min (WOMEN'S DAILY FORMULA) 1 Each Tablet, 1 EACH PO QDAY 02/20/14 Discontinued Scripts Glimepiride (GLIMEPIRIDE) 4 Mg Tablet, 4 MG PO BID, #60 TAB 5 Refills half tablet twice a day x 1 week than 1 tablet twice a day Prov:AURELIA LAYNE MD 08/09/18 Sitagliptin Phosphate (JANUVIA) 100 Mg Tablet, 100 MG PO QDAY, #30 TAB 6 Refills Prov:AURELIA LAYNE MD 05/26/18 Lancets (Blood Lancets) 30 Gauge Each, MISC ASDIRECTED BID, #1 12 Refills use to test blood sugar 1-2 times daily. Prov:AURELIA LAYNE MD 04/25/18 Blood Sugar Diagnostic (BLOOD GLUCOSE TEST STRIP) 1 Each Strip, 1 STRIP MC BID, #60 STRIP 12 Refills Prov:AURELIA LAYNE MD 04/15/18 Blood-Glucose Meter (BLOOD GLUCOSE METER) 1 Each Each, EACH MC, #1 Prov:AURELIA LAYNE MD 04/14/18 Hx Smoking: No Smoking Status: Never Smoker Exposure to Second Hand Smoke?: No Hx Substance Use Disorder: No Hx Alcohol Use: No Constitutional Vital Sign - Last 24 Hours 11/30/18 11/30/18 11/30/18 11/30/18 19:56 20:10 20:10 20:15 Pulse 119 106 103 Resp 20 16 16 B/P (MAP) 143/77 Pulse Ox 87 95 O2 Delivery Room Air Nasal Cannula O2 Flow Rate 2.0 Physical Exam General Appearance: The patient is alert, has no immediate need for airway protection and no signs of toxicity. Uncomfortable appearing, febrile Eyes: Pupils equal and round no pallor or injection. ENT, Mouth: Mucous membranes are moist. Respiratory: There are no retractions, + cough, scattered rhonchi Cardiovascular: Sinus tachycardia Gastrointestinal: Abdomen is soft and non tender, no masses, bowel sounds normal. Neurological: No focal neuro deficits Skin: Warm and dry, no rashes. Musculoskeletal: Neck is supple non tender. Extremities are nontender, nonswollen and have full range of motion. DIFFERENTIAL DIAGNOSIS: After history and physical exam differential diagnosis was considered for shortness of breath including but not limited to pulmonary infectious process, COPD, asthma, pulmonary embolus and congestive heart failure. Medical Decision Making Data Points Result Diagram: 11/30/18202311/30/182023 Laboratory Hematology Test 11/30/18 20:24 11/30/18 20:48 Red Blood Count 4.30 M/uL (4.17-5.56) Mean Corpuscular Volume 91.0 fL (80.0-96.0) Mean Corpuscular Hemoglobin 30.8 pg (26.0-33.0) Mean Corpuscular Hemoglobin Concent 33.8 g/dL (32.0-36.0) Red Cell Distribution Width 13.7 % (11.5-14.5) Mean Platelet Volume 10.1 fL (7.2-11.1) Neutrophils (%) (Auto) 73.8 % (39.4-72.5) Lymphocytes (%) (Auto) 17.9 % (17.6-49.6) Monocytes (%) (Auto) 7.3 % (4.1-12.4) Eosinophils (%) (Auto) 0.4 % (0.4-6.7) Basophils (%) (Auto) 0.6 % (0.3-1.4) Nucleated RBC Relative Count (auto) 0.1 /100WBC Neutrophils # (Auto) 6.5 K/uL (2.0-7.4) Lymphocytes # (Auto) 1.6 K/uL (1.3-3.6) Monocytes # (Auto) 0.6 K/uL (0.3-1.0) Eosinophils # (Auto) 0.0 K/uL (0.0-0.5) Basophils # (Auto) 0.1 K/uL (0.0-0.1) Nucleated RBC Absolute Count (auto) 0.01 K/uL Sodium Level 133 mmol/L (137-145) Potassium Level 4.1 mmol/L (3.5-5.0) Chloride Level 97 mmol/L (98-107) Carbon Dioxide Level 21 mmol/L (22-31) Blood Urea Nitrogen 6 mg/dl (7-18) Creatinine 0.50 mg/dl (0.52-1.04) Glomerular Filtration Rate Calc > 60.0 Random Glucose 271 mg/dl (75-110) Lactate 2.9 mmol/L (0.7-2.1) Calcium Level 9.1 mg/dl (8.4-10.2) Total Bilirubin 1.3 mg/dl (0.2-1.3) Aspartate Amino Transf (AST/SGOT) 26 U/L (0-35) Alanine Aminotransferase (ALT/SGPT) 37 U/L (0-56) Alkaline Phosphatase 114 U/L (0-126) Troponin I < 0.012 ng/ml Total Protein 6.7 g/dl (6.3-8.2) Albumin 3.7 g/dl (3.5-5.0) Lipase 56 U/L (23-300) Urine Color Yellow Urine Clarity Clear Urine pH 5.0 pH (4.8-9.5) Urine Specific [place] 1.014 Urine Protein Negative mg/dL (NEGATIVE) Urine Glucose (UA) 500 mg/dL (NEGATIVE) Urine Ketones Trace mg/dL (NEGATIVE) Urine Blood Small (NEGATIVE) Urine Nitrite Negative (NEGATIVE) Urine Bilirubin Negative (NEGATIVE) Urine Urobilinogen Negative mg/dL (0.2-1.9) Urine Leukocyte Esterase Negative (NEGATIVE) Urine RBC 5 /HPF (0-2/HPF) Urine WBC 6 /HPF (0-5/HPF) Urine Squamous Epithelial Cells Many /LPF (</=FEW) Urine Bacteria Few /HPF (NONE-FEW) Urine Mucus Few /HPF (NONE-FEW) Chemistry Test 11/30/18 20:24 11/30/18 20:48 White Blood Count 8.8 k/uL (4.5-11.0) Red Blood Count 4.30 M/uL (4.17-5.56) Hemoglobin 13.2 g/dL (12.0-16.0) Hematocrit 39.1 % (34.0-47.0) Mean Corpuscular Volume 91.0 fL (80.0-96.0) Mean Corpuscular Hemoglobin 30.8 pg (26.0-33.0) Mean Corpuscular Hemoglobin Concent 33.8 g/dL (32.0-36.0) Red Cell Distribution Width 13.7 % (11.5-14.5) Platelet Count 233 K/uL (150-450) Mean Platelet Volume 10.1 fL (7.2-11.1) Neutrophils (%) (Auto) 73.8 % (39.4-72.5) Lymphocytes (%) (Auto) 17.9 % (17.6-49.6) Monocytes (%) (Auto) 7.3 % (4.1-12.4) Eosinophils (%) (Auto) 0.4 % (0.4-6.7) Basophils (%) (Auto) 0.6 % (0.3-1.4) Nucleated RBC Relative Count (auto) 0.1 /100WBC Neutrophils # (Auto) 6.5 K/uL (2.0-7.4) Lymphocytes # (Auto) 1.6 K/uL (1.3-3.6) Monocytes # (Auto) 0.6 K/uL (0.3-1.0) Eosinophils # (Auto) 0.0 K/uL (0.0-0.5) Basophils # (Auto) 0.1 K/uL (0.0-0.1) Nucleated RBC Absolute Count (auto) 0.01 K/uL Glomerular Filtration Rate Calc > 60.0 Lactate 2.9 mmol/L (0.7-2.1) Calcium Level 9.1 mg/dl (8.4-10.2) Total Bilirubin 1.3 mg/dl (0.2-1.3) Aspartate Amino Transf (AST/SGOT) 26 U/L (0-35) Alanine Aminotransferase (ALT/SGPT) 37 U/L (0-56) Alkaline Phosphatase 114 U/L (0-126) Troponin I < 0.012 ng/ml Total Protein 6.7 g/dl (6.3-8.2) Albumin 3.7 g/dl (3.5-5.0) Lipase 56 U/L (23-300) Urine Color Yellow Urine Clarity Clear Urine pH 5.0 pH (4.8-9.5) Urine Specific [place] 1.014 Urine Protein Negative mg/dL (NEGATIVE) Urine Glucose (UA) 500 mg/dL (NEGATIVE) Urine Ketones Trace mg/dL (NEGATIVE) Urine Blood Small (NEGATIVE) Urine Nitrite Negative (NEGATIVE) Urine Bilirubin Negative (NEGATIVE) Urine Urobilinogen Negative mg/dL (0.2-1.9) Urine Leukocyte Esterase Negative (NEGATIVE) Urine RBC 5 /HPF (0-2/HPF) Urine WBC 6 /HPF (0-5/HPF) Urine Squamous Epithelial Cells Many /LPF (</=FEW) Urine Bacteria Few /HPF (NONE-FEW) Urine Mucus Few /HPF (NONE-FEW) Urinalysis Test 11/30/18 20:48 Urine Color Yellow Urine Clarity Clear Urine pH 5.0 pH (4.8-9.5) Urine Specific [place] 1.014 Urine Protein Negative mg/dL (NEGATIVE) Urine Glucose (UA) 500 mg/dL (NEGATIVE) Urine Ketones Trace mg/dL (NEGATIVE) Urine Blood Small (NEGATIVE) Urine Nitrite Negative (NEGATIVE) Urine Bilirubin Negative (NEGATIVE) Urine Urobilinogen Negative mg/dL (0.2-1.9) Urine Leukocyte Esterase Negative (NEGATIVE) Urine RBC 5 /HPF (0-2/HPF) Urine WBC 6 /HPF (0-5/HPF) Urine Squamous Epithelial Cells Many /LPF (</=FEW) Urine Bacteria Few /HPF (NONE-FEW) Urine Mucus Few /HPF (NONE-FEW) EKG/Imaging EKG Interpretation PATIENT NAME: MAHSA PEARSON : [id number] MR: [id number] V: [id number] EXAM DATE: ORDERING PHYSICIAN: PHYLLIS DILLARD TECHNOLOGIST: DANDRE Test Reason : CARDIAC Blood Pressure : / mmHG Vent. Rate : 108 BPM Atrial Rate : 108 BPM P-R Int : 130 ms QRS Dur : 090 ms QT Int : 312 ms P-R-T Axes : 029 025 014 degrees QTc Int : 418 ms Sinus tachycardia Otherwise normal ECG When compared with ECG of 25-NOV-2017 20:15, No significant change was found Referred By: Confirmed By: Imaging PATIENT NAME: Mahsa Pearson : 1970 MR: [id number] V: [id number] EXAM DATE: [id number] ORDERING PHYSICIAN: PHYLLIS DILLARD TECHNOLOGIST: Location: [facility] Patient: Mahsa Pearson : 1970 Visit/Account:[id number] Date of Sevice: 11/30/2018 Technique: CHEST SINGLE AP HISTORY: FEVER Comparison studies: November 25, 2017 FINDINGS: Hazy left midlung opacities are noted. No pleural effusion. Cardiac silhouette is unchanged. IMPRESSION: 1. Hazy left midlung opacities concerning for pneumonia. ED Course/Re-evaluation ED Course Patient is a 48-year-old female here with complaints of cough, fever, shortness breath, chest tightness and pressure since yesterday. Patient did report having some nausea with an episode of emesis. Patient has had a history of pulmonary hypertension, suspected reactive airway disease on 2 L baseline nasal cannula. Lactate, blood cultures collected, IV fluid replacement initiated with antipyretic. Patient received 1 L normal saline bolus, chest x-ray was consistent with pneumonia. Patient was initiated on Levaquin and prednisone. Plan for a total 5 day course of each. Zofran prescription provided. Labs were remarkable for mildly elevated lactate however there is no leukocytosis, electrolytes were stable. Urinalysis was not infectious, troponin was negative. Patient was given by mouth challenge and tolerated this well. Recommend close PCP follow-up. Patient is on supplemental oxygen at baseline, recommend continuing. Return precautions provided. Patient voiced understanding of plan. Decision to Disposition Date: Nov 30, 2018 Decision to Disposition Time: 21:50 Depart Departure Latest Vital Signs Vital Signs Date Time Temp Pulse Resp B/P (MAP) Pulse Ox O2 Delivery O2 Flow Rate FiO2 11/30/18 20:15 103 16 11/30/18 20:10 95 Nasal Cannula 2.0 11/30/18 19:56 143/77 Impression: Primary Impression: Pneumonia Condition: Improved Disposition: HOME OR SELF-CARE Referrals: AURELIA LAYNE MD (PCP) New Scripts Prednisone (PREDNISONE) 50 Mg Tablet 50 MG PO QDAY for 4 Days, #4 TAB Prov: PHYLLIS DILLARD DO 11/30/18 Ondansetron 4 Mg Odt (ONDANSETRON 4 MG ODT) 4 Mg Tab.rapdis 4 MG PO Q4-6H PRN for NAUSEA/VOMITING, #20 TAB Prov: PHYLLIS DILLARD DO 11/30/18 Levofloxacin 750 Mg Tab (LEVAQUIN 750 MG TAB) 750 Mg Tablet 750 MG PO QDAY for 4 Days, #4 TAB Prov: PHYLLIS DILLARD DO 11/30/18 Departure Forms: ER Transition Record, Medications Reconciliation, Off Work/School Form, School or Work Release?: Work Number of days to be released: 5 Patient Portal Information Patient Instructions: Bacterial Pneumonia (ED) Additional Instructions: Please drink plenty of water. Your blood cultures are pending and will be contacted if these come back positive. You were given your initial dose of Levaquin, please take 750 mg daily for the next 4 days. You were given your initial dose of prednisone, please take 50 mg daily for the next 4 days. Please follow-up with your family doctor in the next 24-48 hours. Please return promptly if you develop increasing shortness breath, persistent fevers in spite of antipyretics, chest pains, inability to keep down food or fluids. You may take Zofran 1 tablet every 4-6 hours as needed for nausea and vomiting. PHYLLIS DILLARD DO Nov 30, 2018 19:53
[2018-11-30 19:56] VITALS: BP 143/77
[2018-11-30] MEDS ORDERED: NS(*) 0.9% 1000 ML BAG 1,000 ML IV ONE (20:08)
[2018-11-30] MEDS ORDERED: ALBUTEROL/IPRATROPIUM 3 ML NEB NEB ONE (20:10)
[2018-11-30] MEDS ORDERED: KETOROLAC 30 MG/ML VIAL IVP ONE (20:10)
[2018-11-30] MEDS ORDERED: ONDANSETRON 4 MG/2 ML VIAL IVP ONE (20:20)
--- NOTE | 2018-11-30 20:38 | EKG ---
FACILITY: [facility] PATIENT NAME: TWAN NGUYEN : [id number] MR: [id number] V: [id number] EXAM DATE: ORDERING PHYSICIAN: PHYLLIS DILLARD TECHNOLOGIST: DANDRE George Reason : CARDIAC Blood Pressure : / mmHG Vent. Rate : 108 BPM Atrial Rate : 108 BPM P-R Int : 130 ms QRS Dur : 090 ms QT Int : 312 ms P-R-T Axes : 029 025 014 degrees QTc Int : 418 ms Sinus tachycardia Otherwise normal ECG When compared with ECG of 25-NOV-2017 20:15, No significant change was found Confirmed by Arsalan Ortiz ([id number]) on 12/01/2018 1:12:55 AM Referred By: Confirmed By:Arsalan Valdez
[2018-11-30 20:45] LABS: PLATELET COUNT, AUTOMATED 233 K/uL (150-450)
--- NOTE | 2018-11-30 20:51 | RADIOLOGY IMAGING REPORT ---
FACILITY: [facility] [place] PATIENT NAME: Mahsa Pearson : 1970 MR: [id number] V: [id number] EXAM DATE: ORDERING PHYSICIAN: PHYLLIS DILLARD TECHNOLOGIST: [place] [facility] [place]: Mahsa Pearson : 1970 Visit/Account:[id number] Date of Sevice: 11/30/2018 Technique: CHEST SINGLE AP HISTORY: FEVER Comparison studies: November 25, 2017 FINDINGS: Hazy left midlung opacities are noted. No pleural effusion. Cardiac silhouette is unchanged . IMPRESSION: 1. Hazy left midlung opacities concerning for pneumonia. Report Dictated By: Anibal Slade DO at 11/30/2018 8:46 PM Report E-Signed By: Anibal Slade DO at 11/30/2018 8:47 PM WSN:[id number]
[2018-11-30] MEDS ORDERED: predniSONE 20 MG TAB PO ONE (20:55)
[2018-11-30] MEDS ORDERED: LEVOFLOXACIN 750 MG TAB PO ONE (21:05)
[2018-11-30] MEDS ORDERED: ONDA4TAB9 PO (21:48)
[2018-11-30] MEDS ORDERED: LEVO750T44 PO (21:48)
[2018-11-30] MEDS ORDERED: PRED50TA22 PO (21:48)
[2018-11-30] MEDS ORDERED: ONDANSETRON 4 MG ODT TH SL ONE (21:50)
== END 2018-11-30 22:30 | disposition home or self-care (01) ==
LOC: ER 20:08
DX: J18.9 Pneumonia, unspecified organism (principal)
CPT/HCPCS: 36415; 71045; 81001; 83605; 83690; 84484; 85025; 87040; 87088; 93005; 94640; 96361; 96374; 96375; 99284; J1885; J2405; J7030; J7512; J7620; S0119; 82040; 82247; 82310; 82374; 82435; 82565; 82947; 84075; 84132; 84155; 84295; 84450; 84460; 84520

== ENCOUNTER 2018-12-18 19:59 | Emergency (ER) | payer OTHER, MEDICAID ==
[2014-03-09 14:53] VITALS: Wt 145.2 kg
[~2018-12-18 19:59] MED LIST changes: -LOR5/325 PO
[2018-12-18] MEDS ORDERED: NS(*) 0.9% 1000 ML BAG 1,000 ML IV ONE (20:04)
[2018-12-18] MEDS ORDERED: ONDANSETRON 4 MG/2 ML VIAL IVP ONE (20:05)
[2018-12-18] MEDS ORDERED: fentaNYL CITR 100 MCG/2 ML AMP IVP ONE ×2 (20:05→21:30)
[2018-12-18] MEDS ORDERED: DIPHTH/TETANUS/ACEL. PERTUSSIS IM ONE (20:05)
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
[2018-12-18 21:02] LABS: PLATELET COUNT, AUTOMATED 301 K/uL (150-450)
[2018-12-18 21:15] LABS: INR 0.95
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
[2018-12-18] MEDS ORDERED: HYDROMORPHONE HCL 1 MG/ML SYRINGE IVP ONE ×3 (22:20→23:40)
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
[2018-12-18] MEDS ORDERED: KETOROLAC 30 MG/ML VIAL IVP ONE (22:35)
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
[2018-12-19 00:30] VITALS: BP 133/88
[2018-12-19] MEDS ORDERED: ONDA4TAB9 PO (01:15)
[2018-12-19] MEDS ORDERED: LOR5/325 PO (01:15)
[2018-12-19] MEDS ORDERED: ACET/HYDROC 5/325MG TH ER ONLY 2 TAB/BOTTLE PO ONE ×2 (01:15)
[2018-12-19] MEDS ORDERED: ONDANSETRON 4 MG ODT TH SL ONE (01:15)
[2018-12-22] MEDS ORDERED: SITA100T PO (15:10)
== END 2018-12-19 01:19 | disposition home or self-care (01) ==
LOC: ER 20:20
DX: S50.11XA Contusion of right forearm, initial encounter (principal); S01.81XA Laceration without foreign body of other part of head, initial encounter; S09.90XA Unspecified injury of head, initial encounter; E11.9 Type 2 diabetes mellitus without complications; V89.2XXA Person injured in unspecified motor-vehicle accident, traffic, initial encounter
CPT/HCPCS: 12011; 36415; 70450; 71045; 71260; 72125; 72170; 73060; 73090; 73130; 73562; 74177; 80320; 81001; 82150; 83605; 83690; 84703; 85025; 85610; 85730; 90471; 90715; 96361; 96374; 96375; 99284; J1170; J1885; J2405; J3010; J7030; L0172; S0119; 82040; 82247; 82310; 82374; 82435; 82565; 82947; 84075; 84132; 84155; 84295; 84450; 84460; 84520

== ENCOUNTER → 2018-12-18 | Outpatient (CLI) | payer MEDICAID ==
[2014-03-09 14:53] VITALS: BMI 50.0
[~2018-12-18] MED LIST changes: +LEVO750T44 PO; +LOR5/325 PO; +ONDA4TAB9 PO; +PRED50TA22 PO
== END ==
LOC: AMB 19:30
PROVIDERS: ATTEND Nurse Practitioner
DX: R51 Headache (principal); M54.9 Dorsalgia, unspecified; M54.2 Cervicalgia; R20.2 Paresthesia of skin; V49.40XA Driver injured in collision with unspecified motor vehicles in traffic accident, initial encounter
CPT/HCPCS: A0425; A0429

== ENCOUNTER → 2018-12-22 | Outpatient (CLI) | payer MEDICAID ==
[2014-03-09 14:53] VITALS: BMI 50.0
[~2018-12-22] MED LIST changes: +LOR5/325 PO
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
== END ==
LOC: RAD 15:12
PROVIDERS: ATTEND Internal Medicine
DX: S63.509A Unspecified sprain of unspecified wrist, initial encounter (principal)